=== PATIENT | male | born 1990 | race Caucasian/White ===

== ENCOUNTER 2020-12-01 01:05 | Emergency (ER) | payer SELFPAY ==
[~2020-12-01] VITALS: Ht 170.2 cm; Wt 111.4 kg
[~2020-12-01 01:05] MED LIST: ATIVAN 0.50.5 MG/TAB PO; FLEXERIL 1010 MG/TAB PO; NO HOME MEDICATIONS
[2020-12-01 02:25] VITALS: BP 159/107; PULSE 95; TEMP 97.5
== END 2020-12-01 02:25 | disposition home or self-care (01) ==
LOC: COL.ER 01:05
DX: M79.671 Pain in right foot (principal); F17.290 Nicotine dependence, other tobacco product, uncomplicated
CPT/HCPCS: J1885

== ENCOUNTER 2020-12-17 21:18 | Emergency (ER) | payer SELFPAY ==
[~2020-12-17] VITALS: Ht 170.2 cm; Wt 109.1 kg
[2020-12-17 22:28] VITALS: BP 135/85; PULSE 85; TEMP 98
== END 2020-12-17 22:28 | disposition home or self-care (01) ==
LOC: COL.ER 21:18
DX: M79.672 Pain in left foot (principal)

== ENCOUNTER 2021-01-01 16:20 | Emergency (ER) | payer SELFPAY ==
[~2021-01-01] VITALS: Ht 167.6 cm; Wt 109.1 kg
[2021-01-01 17:38] VITALS: BP 130/85; PULSE 97
== END 2021-01-01 17:38 | disposition home or self-care (01) ==
LOC: COL.ER 16:20
DX: S99.911A Unspecified injury of right ankle, initial encounter (principal); F17.210 Nicotine dependence, cigarettes, uncomplicated; X50.1XXA Overexertion from prolonged static or awkward postures, initial encounter; Y99.0 Civilian activity done for income or pay

== ENCOUNTER 2021-02-08 13:13 | Emergency (ER) | payer SELFPAY ==
[~2021-02-08] VITALS: Ht 167.6 cm; Wt 109.1 kg
[2021-02-08] MEDS ORDERED: PREDNISONE20 MG PO (14:02)
[2021-02-08 14:40] VITALS: BP 154/93; PULSE 115
== END 2021-02-08 14:40 | disposition home or self-care (01) ==
LOC: COL.ER 13:13
DX: M79.674 Pain in right toe(s) (principal)

== ENCOUNTER 2021-03-28 14:47 | Emergency (ER) | payer SELFPAY ==
[~2021-03-28] VITALS: Ht 170.2 cm; Wt 106.8 kg
[~2021-03-28 14:47] MED LIST changes: +PREDNISONE20 MG PO
[2021-03-28] MEDS ORDERED: NAPROSYN500 MG PO (16:57)
[2021-03-28] MEDS ORDERED: FLEXERIL 1010 MG/TAB PO (16:57)
[2021-03-28 17:10] VITALS: BP 138/64; PULSE 80; TEMP 98.6
== END 2021-03-28 17:20 | disposition home or self-care (01) ==
LOC: COL.ER 14:47
DX: S29.012A Strain of muscle and tendon of back wall of thorax, initial encounter (principal); X50.0XXA Overexertion from strenuous movement or load, initial encounter; Y93.89 Activity, other specified
CPT/HCPCS: J1885

== ENCOUNTER 2021-05-03 15:58 | Emergency (ER) | payer SELFPAY ==
[~2021-05-03] VITALS: Ht 167.6 cm; Wt 109.1 kg
[~2021-05-03 15:58] MED LIST changes: +NAPROSYN500 MG PO
[2021-05-03 16:34] VITALS: TEMP 98.3
[2021-05-03 18:27] VITALS: BP 142/96; PULSE 101
== END 2021-05-03 18:28 | disposition home or self-care (01) ==
LOC: COL.ER 15:58
DX: S29.012A Strain of muscle and tendon of back wall of thorax, initial encounter (principal); M25.522 Pain in left elbow; X58.XXXA Exposure to other specified factors, initial encounter

== ENCOUNTER 2021-07-10 15:05 | Emergency (ER) | payer SELFPAY ==
[~2021-07-10] VITALS: Ht 167.6 cm; Wt 106.8 kg
[2021-07-10 15:13] VITALS: BP 125/88; PULSE 108; TEMP 98.4
== END 2021-07-10 15:57 | disposition home or self-care (01) ==
LOC: COL.ER 15:05
DX: M54.50 Low back pain, unspecified (principal)

== ENCOUNTER 2021-07-16 11:03 | Emergency (ER) | payer SELFPAY ==
[~2021-07-16] VITALS: Ht 167.6 cm; Wt 104.5 kg
[2021-07-16 11:38] VITALS: TEMP 98.3
[2021-07-16 13:23] LABS: BASO % 0.4 % (0.0-2.0); EOS # 0.2 K/mm3 (0.0-0.7); EOS % 1.7 % (0.0-4.0); GRAN % 71.5 % (42.2-75.2); HEMATOCRIT 43.2 % (42.0-52.0); HEMOGLOBIN 14.6 g/dl (13.5-18.0); LYMPH # 1.8 K/mm3 (1.2-3.4); LYMPH % 17.9 % (20.0-51.0); MEAN CELL VOLUME 80 fl (80.0-100.0); MEAN CORPUSCULAR HEMOGLOBIN 27 pg (27-31); MEAN CORPUSCULAR HGB CONC 34 g/dl (33.0-37.0); MEAN PLATELET VOLUME 9.6 fl (7.4-10.4); MONO # 0.8 K/mm3 (0.1-0.6); MONO % 8.1 % (1.7-9.3); PLATELET COUNT 273 K/mm3 (130-400); RED BLOOD COUNT 5.39 M/mm3 (4.20-5.60); REDCELL DISTRIBUTION WIDTH-CV 13.2 % (11.5-14.5)
[2021-07-16 13:38] LABS: ALBUMIN 3.7 gm/dL (3.5-5.0); BILIRUBIN,TOTAL 0.7 mg/dL (0.2-1.2); CALCIUM 8.8 mg/dL (8.4-10.2); CREATININE, serum 0.79 mg/dL (0.72-1.25); POTASSIUM 3.7 mmol/L (3.5-4.5); TOTAL PROTEIN 7.4 gm/dL (6.2-8.1)
[2021-07-16 15:20] VITALS: BP 129/81; PULSE 80
== END 2021-07-16 15:40 | disposition home or self-care (01) ==
LOC: COL.ER 11:03
PROVIDERS: Physician Assistant
DX: B34.9 Viral infection, unspecified (principal); Z20.822 Contact with and (suspected) exposure to COVID-19
CPT/HCPCS: J1885; J2405; J7030

== ENCOUNTER 2021-07-29 13:37 | Emergency (ER) | payer SELFPAY ==
[~2021-07-29] VITALS: Ht 167.6 cm; Wt 104.5 kg
[2021-07-29 14:20] VITALS: BP 142/98; PULSE 119; TEMP 98.3
== END 2021-07-29 15:33 | disposition left against medical advice (07) ==
LOC: COL.ER 13:37
DX: U07.1 COVID-19 (principal)

== ENCOUNTER 2021-10-05 10:43 | Emergency (ER) | payer SELFPAY ==
[~2021-10-05] VITALS: Ht 170.2 cm; Wt 106.8 kg
[2021-10-05 11:33] VITALS: BP 152/85; TEMP 98.2
[2021-10-05] MEDS ORDERED: FLEXERIL 1010 MG/TAB PO (13:09)
[2021-10-05 13:17] VITALS: PULSE 70
== END 2021-10-05 13:17 | disposition home or self-care (01) ==
LOC: COL.ER 10:43
DX: S33.5XXA Sprain of ligaments of lumbar spine, initial encounter (principal); X50.1XXA Overexertion from prolonged static or awkward postures, initial encounter; Y92.59 Other trade areas as the place of occurrence of the external cause; Y99.0 Civilian activity done for income or pay

== ENCOUNTER 2021-12-05 10:58 | Emergency (ER) | payer SELFPAY ==
[~2021-12-05] VITALS: Ht 170.2 cm; Wt 109.1 kg
[2021-12-05] MEDS ORDERED: ZOFRAN ODT4 MG PO (11:41)
[2021-12-05 11:48] VITALS: BP 163/115; PULSE 94; TEMP 98.2
== END 2021-12-05 11:48 | disposition home or self-care (01) ==
LOC: COL.ER 10:58
DX: B34.9 Viral infection, unspecified (principal); Z28.311 Partially vaccinated for COVID-19

== ENCOUNTER 2022-02-17 14:59 | Emergency (ER) | payer SELFPAY ==
[~2022-02-17 14:59] MED LIST changes: +ZOFRAN ODT4 MG PO
== END 2022-02-17 15:47 | disposition left against medical advice (07) ==
LOC: COL.ER 14:59
DX: R52 Pain, unspecified (principal)

== ENCOUNTER 2022-04-07 16:59 | Emergency (ER) | payer SELFPAY ==
[~2022-04-07] VITALS: Ht 170.2 cm; Wt 109.1 kg
[2022-04-07 17:56] LABS: BASO # 0.1 K/mm3 (0.0-0.2); BASO % 0.6 % (0.0-2.0); EOS # 0.1 K/mm3 (0.0-0.7); EOS % 0.6 % (0.0-4.0); GRAN # 9.6 K/mm3 (1.4-6.5); GRAN % 79.4 % (42.2-75.2); HEMATOCRIT 45.7 % (42.0-52.0); HEMOGLOBIN 15.4 g/dl (13.5-18.0); LYMPH # 1.4 K/mm3 (1.2-3.4); LYMPH % 11.4 % (20.0-51.0); MEAN CELL VOLUME 81 fl (80.0-100.0); MEAN CORPUSCULAR HEMOGLOBIN 27 pg (27-31); MEAN CORPUSCULAR HGB CONC 34 g/dl (33.0-37.0); MEAN PLATELET VOLUME 10.2 fl (7.4-10.4); MONO # 0.9 K/mm3 (0.1-0.6); MONO % 7.7 % (1.7-9.3); PLATELET COUNT 299 K/mm3 (130-400); RED BLOOD COUNT 5.65 M/mm3 (4.20-5.60)
[2022-04-07 18:15] LABS: ALBUMIN 4.1 gm/dL (3.5-5.0); BILIRUBIN,TOTAL 0.9 mg/dL (0.2-1.2); CALCIUM 9.4 mg/dL (8.4-10.2); CREATININE, serum 0.86 mg/dL (0.72-1.25); POTASSIUM 3.9 mmol/L (3.5-4.5); TOTAL PROTEIN 7.9 gm/dL (6.2-8.1)
[2022-04-07 19:48] VITALS: BP 145/99; PULSE 98; TEMP 97.5
== END 2022-04-07 20:03 | disposition left against medical advice (07) ==
LOC: COL.ER 16:59
PROVIDERS: Nurse Practitioner Primary Care
DX: R51.9 Headache, unspecified (principal); R53.81 Other malaise; Z20.822 Contact with and (suspected) exposure to COVID-19; W22.8XXA Striking against or struck by other objects, initial encounter
CPT/HCPCS: J1885; J7030

== ENCOUNTER 2022-09-23 09:59 | Emergency (ER) | payer SELFPAY ==
[~2022-09-23] VITALS: Ht 170.2 cm; Wt 109.1 kg
[2022-09-23 10:04] VITALS: BP 130/55; TEMP 98
[2022-09-23 10:54] LABS: BASO # 0.1 K/mm3 (0.0-0.2); BASO % 0.4 % (0.0-2.0); EOS % 0.2 % (0.0-4.0); GRAN # 11.1 K/mm3 (1.4-6.5); HEMOGLOBIN 15.3 g/dl (13.5-18.0); LYMPH # 1.4 K/mm3 (1.2-3.4); LYMPH % 10.4 % (20.0-51.0); MEAN CELL VOLUME 81 fl (80.0-100.0); MEAN CORPUSCULAR HEMOGLOBIN 27 pg (27-31); MEAN CORPUSCULAR HGB CONC 33 g/dl (33.0-37.0); MEAN PLATELET VOLUME 9.8 fl (7.4-10.4); MONO # 0.9 K/mm3 (0.1-0.6); MONO % 6.8 % (1.7-9.3); PLATELET COUNT 260 K/mm3 (130-400); RED BLOOD COUNT 5.65 M/mm3 (4.20-5.60); REDCELL DISTRIBUTION WIDTH-CV 13.4 % (11.5-14.5)
[2022-09-23 11:19] LABS: ERYTHROCYTE SEDIMENTATION RATE 8 mm/hr (0-15)
[2022-09-23 11:41] LABS: ALBUMIN 4.1 gm/dL (3.5-5.0); BILIRUBIN,TOTAL 1.4 mg/dL (0.2-1.2); C-REACTIVE PROTEIN 3.5 mg/dL (0.00-0.50); CALCIUM 9.6 mg/dL (8.4-10.2); CREATININE, serum 0.88 mg/dL (0.72-1.25); POTASSIUM 3.8 mmol/L (3.5-4.5); TOTAL PROTEIN 7.9 gm/dL (6.2-8.1)
[2022-09-23] MEDS ORDERED: PREDNISONE50 MG PO (13:28)
[2022-09-23] MEDS ORDERED: CEPHALEXIN500 M1 PO (13:28)
[2022-09-23 13:30] VITALS: PULSE 102
== END 2022-09-23 13:35 | disposition home or self-care (01) ==
LOC: COL.ER 09:59
PROVIDERS: Emergency Medicine
DX: M19.032 Primary osteoarthritis, left wrist (principal); Z28.310 Unvaccinated for COVID-19
CPT/HCPCS: J1885; J7030; J7512